=== PATIENT | male | born 1995 | race Caucasian/White ===

== ENCOUNTER 2016-10-10 00:07 | Emergency (ER) | payer OTHER ==
--- NOTE | 2016-10-10 00:41 | ER Document Report ---
ED General - General Chief Complaint: Decreased LOC Stated Complaint: ALTERED MENTAL STATUS Time seen by provider: 00:45 Mode of Arrival: Stretcher Information source: Law Enforcement TRAVEL OUTSIDE OF THE [place] IN LAST 30 DAYS: No - HPI Patient complains to provider of: altered mental status Onset: Just prior to arrival Onset/Duration: Gradual Associated symptoms: None Notes: Patient is a 21-year-old male brought by law enforcement to the emergency room for altered mental status, according to law enforcement patient was arrested around 8 PM, when checking into detention he told the nurse there that he had taken an unknown amount of Ambien and Lunesta at an unknown time, during his course of stay in the detention he has become increasingly somnolent and difficult to arouse , patient arrived, he minimally responds to sternal rub, however he is maintaining his airway and his vital signs are stable - Related Data Allergies/Adverse Reactions: acetaminophen [From Tylenol] Adverse Reaction (Verified 07/24/15 10:51) Past Medical History - General Information source: Law Enforcement - Social History Smoking Status: Unknown if Ever Smoked Family History: Reviewed & Not Pertinent Psychiatric Medical History: Reports: Hx Attention Deficit Hyperactivity Disorder Past Surgical History: Reports: Hx Oral Surgery - Immunizations Immunizations up to date: Yes Hx Diphtheria, Pertussis, Tetanus Vaccination: Yes - UTD Review of Systems - Review of Systems -: Yes ROS unobtainable due to patient's medical condition Physical Exam - Vital signs Vitals: Pulse Resp BP Pulse Ox 98 16 127/80 H 96 10/10/16 00:25 10/10/16 00:25 10/10/16 00:25 10/10/16 00:25 Interpretation: Normal - General General appearance: Other - Somnolent In distress: None - HEENT Head: Normocephalic, Atraumatic Eyes: Normal Eyelashes: Normal Pupils: PERRL Mouth/Lips: Other - Poor dentition Pharynx: Normal - Respiratory Respiratory status: No respiratory distress Chest status: Nontender Breath sounds: Normal Chest palpation: Normal - Cardiovascular Rhythm: Regular Heart sounds: Normal auscultation - Abdominal Inspection: Normal Distension: No distension Bowel sounds: Normal Tenderness: Nontender Organomegaly: No organomegaly - Back Back: Normal - Extremities General upper extremity: Normal inspection General lower extremity: Normal inspection - Neurological [place] Coma Scale Motor: Withdraws to Pain - Skin Skin Temperature: Warm Skin Moisture: Dry Skin Color: Normal Course - Re-evaluation Re-evalutation: 10/10/16 00:45 A call was placed to poison control, patient was discussed with Rachel, who recommends supportive care 10/10/16 02:24 Patient more easily aroused at this point in time, he sits up in the bed and open his eyes on command, toxicology is positive for opiates, benzos and marijuana, likely why patient is so somnolent, otherwise his vital signs have been stable and he is cleared to be discharged back to detention as long as they're willing to take him back, 's deputy at bedside is calling to make sure that he will be permitted back in the detention to sleep it off - Vital Signs Vital signs: Temp Pulse Resp BP Pulse Ox 98 16 127/80 H 96 10/10/16 00:25 10/10/16 00:25 10/10/16 00:25 10/10/16 00:25 - Laboratory Result Diagrams: 10/10/16 00:51 10/10/16 00:51 Laboratory results interpreted by me: 10/10/16 10/10/16 00:51 00:51 RBC 4.27 L Hgb 12.7 L Hct 37.5 L RDW 14.2 H Carbon Dioxide 33 H Calcium 10.3 H AST 61 H Salicylates < 1.0 L Acetaminophen < 10 L - EKG Interpretation by [facility] EKG shows normal: Sinus rhythm Rate: Normal Rhythm: NSR Discharge - Discharge Clinical Impression: Polypharmacy Condition: Stable Disposition: HOME, SELF-CARE Instructions: Overdose / Ingestion ([facility]), Instructions for Home Care Following a Drug Overdose ([facility]) Additional Instructions: Follow up with your primary care provider in one to 2 days. Return to the emergency room immediately if symptoms worsen or any additional concerns. Only take medications that are prescribed to the way that they are prescribed.
[2016-10-10 01:04] LABS: ABSOLUTE BASOPHILS # (AUTO) 0.1 10^3/uL (0.0-0.2); ABSOLUTE EOSINOPHILS # (AUTO) 0.1 10^3/uL (0.0-0.6); ABSOLUTE LYMPHOCYTES (AUTO) 2.5 10^3/uL (0.5-4.7); ABSOLUTE MONOCYTES (AUTO) 0.8 10^3/uL (0.1-1.4); ABSOLUTE NEUT (AUTO) 3.9 10^3/uL (1.7-8.2); EOSINOPHILS % (AUTO) 1.5 % (0-6); HEMATOCRIT 37.5 % (37.9-51.0); HEMOGLOBIN 12.7 g/dL (13.5-17.0); HGB HCT DIFFERENCE 0.6; LYMPHOCYTES % (AUTO) 33.5 % (13-45); MEAN CORPUSCULAR HEMOGLOBIN 29.8 pg (27.0-33.4); MEAN CORPUSCULAR HGB CONC 33.9 g/dL (32.0-36.0); MEAN CORPUSCULAR VOLUME 88 fl (80-97); MONOCYTES % (AUTO) 11.1 % (3-13); RED BLOOD COUNT 4.27 10^6/uL (4.35-5.55); RED CELL DISTRIBUTION WIDTH 14.2 % (11.5-14.0); SEGMENTED NEUTROPHILS % (AUTO) 52.9 % (42-78); WHITE BLOOD COUNT 7.5 10^3/uL (4.0-10.5)
[2016-10-10 01:19] LABS: ALANINE AMINOTRANSFERASE 48 U/L (21-72); ALBUMIN 4.7 g/dL (3.5-5.0); ALKALINE PHOSPHATASE 98 U/L (38-126); ANION GAP 11 (5-19); ASPARTATE AMINO TRANSFERASE 61 U/L (17-59); BILIRUBIN,TOTAL 0.4 mg/dL (0.2-1.3); BLOOD UREA NITROGEN 9 mg/dL (7-20); CALCIUM 10.3 mg/dL (8.4-10.2); CARBON DIOXIDE 33 mmol/L (22-30); CHLORIDE 100 mmol/L (98-107); CREATININE RESULT 0.85 mg/dL (0.52-1.25); GLUCOSE 102 mg/dL (75-110); POTASSIUM 4.6 mmol/L (3.6-5.0); SODIUM 143.6 mmol/L (137-145)
[2016-10-10 01:20] LABS: ALCOHOL < 10 mg/dL (NONE DETECTED)
[2016-10-10 01:33] LABS: APPEARANCE,URINE CLEAR; BILIRUBIN,URINE NEGATIVE (NEGATIVE); GLUCOSE, URINE NEGATIVE (NEGATIVE); KETONES,URINE NEGATIVE (NEGATIVE); LEUKOCYTE ESTERASE,URINE NEGATIVE (NEGATIVE); NITRITE,URINE NEGATIVE (NEGATIVE); PROTEIN,URINE NEGATIVE (NEGATIVE); URINE SPECIFIC GRAVITY 1.005; UROBILINOGEN,URINE NEGATIVE mg/dL (<2.0)
[2016-10-10 01:48] LABS: URINE BARBITURATES SCREEN NEGATIVE; URINE METHADONE SCREEN NEGATIVE; URINE OPIATES LOW UNCONFIRMED POSITIVE; URINE PHENCYCLIDINE SCREEN NEGATIVE
[2016-10-10 03:12] VITALS: BP 131/81
--- NOTE | 2016-10-10 08:07 | EKG REPORT ---
SEVERITY:- BORDERLINE ECG - SINUS RHYTHM BORDERLINE PROLONGED QT INTERVAL : Confirmed by: Zack Chang MD 10-Oct-2016 08:06:23
== END 2016-10-10 03:13 | disposition home or self-care (01) ==
LOC: ER 00:07
DX: F13.90 Sedative, hypnotic, or anxiolytic use, unspecified, uncomplicated (principal); R40.0 Somnolence
CPT/HCPCS: 36415; 80053; 80307; 81001; 85025; 93005; 93010; 99285